=== PATIENT | male | born 1970 | race Caucasian/White ===

== ENCOUNTER → 2021-10-05 11:44 | Outpatient (BNVA) | payer BC, MEDICAID, SELFPAY | PROVIDERS: PCP Nurse Practitioner Family; Visit Provider Nurse Practitioner Family | DX: R56.9 Unspecified convulsions (principal); I10 Essential (primary) hypertension; Z86.73 Personal history of transient ischemic attack (TIA), and cerebral infarction without residual deficits; Z12.5 Encounter for screening for malignant neoplasm of prostate; Z12.11 Encounter for screening for malignant neoplasm of colon; Z76.89 Persons encountering health services in other specified circumstances | CPT/HCPCS: 80053; 80061; 80164; G0103 ==

== ENCOUNTER 2021-12-30 06:00 | Outpatient (RCR) | payer BC, MEDICAID, SELFPAY | END 2022-01-23 23:59 | disposition home or self-care (01) | LOC: TPT 06:00 | PROVIDERS: PCP Nurse Practitioner Family; Referring Provider Nurse Practitioner Family; Visit Provider Nurse Practitioner Family | DX: M25.559 Pain in unspecified hip (principal); M25.519 Pain in unspecified shoulder; M41.9 Scoliosis, unspecified | CPT/HCPCS: 97163 ==

== ENCOUNTER → 2022-02-21 10:51 | Outpatient (BNVA) | payer BC, MEDICAID, SELFPAY | PROVIDERS: PCP Nurse Practitioner Family; Visit Provider Nurse Practitioner Family | DX: F32.A Depression, unspecified (principal); E78.00 Pure hypercholesterolemia, unspecified; I10 Essential (primary) hypertension; M54.9 Dorsalgia, unspecified; M41.9 Scoliosis, unspecified; R56.9 Unspecified convulsions; F41.9 Anxiety disorder, unspecified | CPT/HCPCS: 80053; 80061; 84443 ==

== ENCOUNTER → 2022-07-21 09:40 | Outpatient (BNVA) | payer BC, MEDICAID, SELFPAY | PROVIDERS: PCP Nurse Practitioner Family; Visit Provider Nurse Practitioner Family | DX: G40.A09 Absence epileptic syndrome, not intractable, without status epilepticus (principal); F41.9 Anxiety disorder, unspecified; Z79.899 Other long term (current) drug therapy; F32.A Depression, unspecified; R56.9 Unspecified convulsions; E78.00 Pure hypercholesterolemia, unspecified; R42 Dizziness and giddiness; R51.9 Headache, unspecified; I10 Essential (primary) hypertension | CPT/HCPCS: 80053; 80061; 80164; 84443 ==

== ENCOUNTER → 2022-09-01 11:32 | Outpatient (BNVA) | payer BC, MEDICAID, SELFPAY | PROVIDERS: PCP Nurse Practitioner Family; Visit Provider Nurse Practitioner Family | DX: R56.9 Unspecified convulsions (principal); Z79.899 Other long term (current) drug therapy | CPT/HCPCS: 80164 ==

== ENCOUNTER → 2022-10-24 11:32 | Outpatient (BNVA) | payer BC, SELFPAY | PROVIDERS: PCP Nurse Practitioner Family; Visit Provider Psychiatry & Neurology Neurology | DX: G40.909 Epilepsy, unspecified, not intractable, without status epilepticus (principal) | CPT/HCPCS: 80164 ==

== ENCOUNTER 2022-11-01 13:39 | Outpatient (CLI) | payer BC, SELFPAY ==
--- NOTE | 2022-11-01 13:45 | MR_ITS ---
WS: [id number] MRI BRAIN WITHOUT CONTRAST HISTORY: R56.9 - Unspecified convulsions COMPARISON: Noncontrast CT head 11/19/2015 TECHNIQUE: Diffusion imaging, multiplanar T1, T2 and FLAIR imaging obtained. Diffusion-weighted imaging is normal. No acute infarct. Volume loss and prior remote infarct along th e RIGHT parafalcine frontal and parietal lobes. There is involvement of the RIGHT frontal, parietal a nd occipital lobes. Inferior extension along the temporal lobe. Very similar distribution as compared to the prior CT. No significant volume loss within the LEFT cerebrum. No additional infarcts. Mild ex vacuole dilatation of the RIGHT lateral ventricle. No inferior displacement of cerebellar tonsils. The sella turcica and pituitary gland are unremarkabl e. Dural venous sinuses and chitina of [place] demonstrate no abnormality on this unenhanced studies. Paranasal sinuses: Clear. Mastoid air cells: Normal. Calvarium and scalp: Intact. MR/MR head wo con* [id number] IMPRESSION: 1. No acute infarct. 2. Large area of encephalomalacia involving the RIGHT parafalcine frontal and parietal lobes with extension into the occipital and temporal lobes. These find ings were seen present in 2016 and without obvious progression. Probably posttr aumatic as per history. 3. Volume loss RIGHT cerebrum with ex vacuole dilatation of the RIGHT lateral ventricle.
== END 2022-11-01 13:40 | disposition home or self-care (01) ==
PROVIDERS: PCP Nurse Practitioner Family; Visit Provider Psychiatry & Neurology Neurology
DX: R56.9 Unspecified convulsions (principal)
CPT/HCPCS: 70551

== ENCOUNTER 2022-11-03 15:53 | Emergency (ER) | payer BC, SELFPAY ==
[2022-11-03 15:56] VITALS: BP 150/107; PULSE 67; TEMP 36.4; O2SAT 98; BMI 27.3
--- NOTE | 2022-11-03 16:07 | W.ED.NEUROSD ---
HPI - Neuro Symptoms/Deficit General: Chief Complaint: Neuro Symptoms/Deficit Stated Complaint: Stoke like symptoms Time Seen by Provider: 11/03/22 16:01 Source: patient Mode of arrival: ambulatory History of Present Illness: 52-year-old male was at the counselor's office began not to feel well then he had some shaking. He was ambulated over to the primary care doctor's office for they seen him felt he was possibly having a seizure and he was brought in by ambulance. He can remember the entire event he tells me he thinks he is having a panic attack he has no focal neurologic deficits he does report that when he was a child he evidently had a stroke and has some left-sided weakness and walks with a limp and has limitations on his arm that he reports is all being at his baseline he is awake and alert and oriented x3 follows all commands well. [facility] ED PFSH: Medical History History of stroke (~1971) Scoliosis Seizures (~1971) Social History Smoking and tobacco status: never smoked Adopted: Yes Caregiver/support person: Yes (adoptive mother) Current gender identity: Male Physical Exam Neuro: OTHER: NIH score 0 Course Vital Signs: Vital signs: Vital Signs Temperature 97.6 F 11/03/22 15:56 Pulse Rate 67 11/03/22 15:56 Blood Pressure 133/88 11/03/22 16:42 Pulse Oximetry 98 11/03/22 16:42 Oxygen Delivery Me thod Room Air 11/03/22 16:42 MDM - Neuro Symptoms/Deficit Medical Decision Making Neurologically intact he does have some left-sided deficits from previous old injury he states it was even was a child but otherwise he is awake and alert he has no postictal symptoms no acute neurologic deficits. That episode that happened he was able to ambulate on his own remembers everything that happened I suspect he had a panic attack which is what he identified as exam is normal he is fully neurologically intact at this time we will go and discharge patient home follow-up as needed continue all his current medications. Medical Records I reviewed the patient's medical records. Lab Data I reviewed the patient's lab results. 11/03/22 16:05 11/03/22 16:05 Laboratory Results WBC 5.5 10^3/uL (4.0-10.0) 11/03/22 16:05 RBC 5.15 10^6/uL (4.1-5.3) 11/03/22 16:05 Hgb 15.9 g/dL (11.7-16.6) 11/03/22 16:05 Hct 48.7 % (42.0-52.0) 11/03/22 16:05 MCV 94.6 fl (80-94) H 11/03/22 16:05 MCH 30.9 pg (28.0-34.0) 11/03/22 16:05 MCHC 32.6 g/dL (30.0-36.0) 11/03/22 16:05 RDW 13.0 % (12.1-15.1) 11/03/22 16:05 Plt Count 176 10^3/cmm (130-400) 11/03/22 16:05 MPV 10.2 fL (7.4-10.4) 11/03/22 16:05 Neut % (Auto) 50.4 % 11/03/22 16:05 Lymph % (Auto) 37.3 % 11/03/22 16:05 [place] % (Auto) 9.3 % 11/03/22 16:05 Eos % (Auto) 1.8 % 11/03/22 16:05 Baso % (Auto) 0.7 % 11/03/22 16:05 Neut # (Auto) 2.75 10^3/uL (1.8-7.7) 11/03/22 16:05 Lymph # (Auto) 2.0 10^3/uL (0.8-4.8) 11/03/22 16:05 [place] # (Auto) 0.5 10^3/uL (0.2-0.9) 11/03/22 16:05 Eos # (Auto) 0.1 10^3/uL (0.0-0.8) 11/03/22 16:05 Baso # (Auto) 0.0 10^3/uL (0.0-0.1) 11/03/22 16:05 Nucleated RBC % (auto) 0 % 11/03/22 16:05 Nucleated RBCs # 0.0 /100WBC 11/03/22 16:05 Sodium 138 mmol/L (136-145) 11/03/22 16:05 Chloride 100 mmol/L (98-107) 11/03/22 16:05 Carbon Dioxide 26 mmol/L (22-29) 11/03/22 16:05 BUN 10 mg/dL (6-20) 11/03/22 16:05 Creatinine 0.8 mg/dL (0.7-1.2) 11/03/22 16:05 GFR Calculation 101.9 mL/min (90-130) 11/03/22 16:05 Glucose 93 mg/dL (65-115) 11/03/22 16:05 Calculated Osmolality 285 mOsm/kg (285-295) 11/03/22 16:05 Calcium 9.2 mg/dL (8.5-10.5) 11/03/22 16:05 Total Bilirubin 0.3 mg/dL (0.15-1.2) 11/03/22 16:05 AST 32 U/L (0-40) 11/03/22 16:05 ALT 35 U/L (0-41) 11/03/22 16:05 Alkaline Phosphatase 65 U/L (40-130) 11/03/22 16:05 Total Protein 7.6 g/dL (6.6-8.7) 11/03/22 16:05 Albumin 4.3 g/dL (3.5-5.2) 11/03/22 16:05 Globulin 3.3 g/dL (1.3-4.6) 11/03/22 16:05 Discharge Plan Discharge Patient Disposition: Home Clinical Impression: Anxiety, Seizures Condition: Stable Prescriptions: No Action (DME) orthopedic shoes with an external heel lift to the left 2.8 cm See Rx Instructions .Route .MEDSUPPLY Qty: 1 0RF Rx Instructions: As directed by [facility] divalproex [Depakote] 250 mg tablet,delayed release (DR/EC) 250 mg PO Q6H Qty: 120 5RF Rx Instructions: @02:00,08:00,14:00,20:00 Discharge Orders: Discharge ED (Routine); Ordered 11/03/22 Ordered By: Александр Tran Referrals: Josefa Newman NP [Primary Care Provider] - Patient Instructions: Opioid Safety, Pain Management Activity Restrictions/Additional Instructions: You are seen today after an anxiety attack. From your description and your exam there is no evidence of a new acute stroke or evidence that you have had a seizure. Continue on all of your current medications and follow-up as needed. Coding Level of Care Code ED Geriatric Physician for Leslie Russ
[2022-11-03 16:15] LABS: Basophils % 0.7 %; Eosinophils # 0.1 10^3/uL (0.0-0.8); Eosinophils % 1.8 %; Hematocrit 48.7 % (42.0-52.0); Hemoglobin 15.9 g/dL (11.7-16.6); Lymphocytes % 37.3 %; Mean Corpuscular HGB Conc 32.6 g/dL (30.0-36.0); Mean Corpuscular Hemoglobin 30.9 pg (28.0-34.0); Mean Corpuscular Volume 94.6 fl (80-94); Mean Platelet Volume 10.2 fL (7.4-10.4); Monocytes # 0.5 10^3/uL (0.2-0.9); Monocytes % 9.3 %; Neutrophils # 2.75 10^3/uL (1.8-7.7); Neutrophils % 50.4 %; Nucleated Red Blood Cells % 0 %; Platelet Count 176 10^3/cmm (130-400); Red Blood Count 5.15 10^6/uL (4.1-5.3); White Blood Count 5.5 10^3/uL (4.0-10.0)
--- NOTE | 2022-11-03 16:36 | ECG_ITS ---
[facility] Test Date: 2022-11-03 Pat Name: Dann Bowens Department: Room: Gender: Male Household Worker: : 1970 Requested By: Александр Almeida Order Number: [id number] Jeffy MD: Perico Aguillon M.D. Measurements Intervals [place] Rate: 64 P: 64 [place]: 156 QRS: -25 QRSD: 89 T: 59 QT: 405 QTc: 420 Interpretive Statements SINUS RHYTHM WITH SINUS ARRHYTHMIA BORDERLINE LEFT AXIS DEVIATION [QRS AXIS < -20] Compared to ECG 11/19/2015 16:24:16 Sinus bradycardia no longer present Incomplete right bundle-branch block no longer present T-wave abnormality no longer present Electronically Signed On 11-04-2022 11:59:20 CDT by Perico Aguillon M.D. [id number]
--- NOTE | 2022-11-03 16:40 | PC.PHAR ---
PT STATES ONLY TAKING DEPAKOTE DR 250MG Q6H-PT STATES THE DEPAKOTE ER 500MG 2 TABS BID FILLED 09/28/22 30D/S ZONISAMIDE 100MG TID FILLED 09/22/22 90D/S LEXAPRO 10MG DAILY FILLED 08/11/22 30D/S AND ZOCOR 20MG HS FILLED 07/22/22 90D/S WAS ALL DCED
[2022-11-03 16:42] VITALS: BP 133/88; O2SAT 98
[2022-11-03 16:55] LABS: Alanine Aminotransferase 35 U/L (0-41); Albumin Level 4.3 g/dL (3.5-5.2); Alkaline Phosphatase 65 U/L (40-130); Aspartate Amino Transferase 32 U/L (0-40); Blood Urea Nitrogen 10 mg/dL (6-20); Calcium 9.2 mg/dL (8.5-10.5); Carbon Dioxide 26 mmol/L (22-29); Chloride 100 mmol/L (98-107); Globulin 3.3 g/dL (1.3-4.6); Glomerular Filtration Rate 101.9 mL/min (90-130); Glucose 93 mg/dL (65-115); Osmolality Calculated 285 mOsm/kg (285-295); Sodium 138 mmol/L (136-145); Total Bilirubin 0.3 mg/dL (0.15-1.2); Total Protein 7.6 g/dL (6.6-8.7)
[2022-11-03 17:22] LABS: Anion Gap 15.9 (5-19); Potassium 3.9 mmol/L (3.5-5.1)
== END 2022-11-03 17:42 | disposition home or self-care (01) ==
PROVIDERS: Emergency Provider Family Medicine; PCP Nurse Practitioner Family
DX: R56.9 Unspecified convulsions (principal); F41.9 Anxiety disorder, unspecified; Z86.73 Personal history of transient ischemic attack (TIA), and cerebral infarction without residual deficits
CPT/HCPCS: 80053; 85025; 93005; 99284

== ENCOUNTER → 2022-11-14 08:40 | Outpatient (BNVA) | payer BC, SELFPAY | PROVIDERS: PCP Nurse Practitioner Family; Visit Provider Psychiatry & Neurology Neurology | DX: R56.9 Unspecified convulsions (principal); R42 Dizziness and giddiness; R51.9 Headache, unspecified; R55 Syncope and collapse; Z79.899 Other long term (current) drug therapy | CPT/HCPCS: 80164 ==

== ENCOUNTER → 2022-12-12 09:16 | Outpatient (BNVA) | payer BC, SELFPAY | PROVIDERS: PCP Nurse Practitioner Family; Visit Provider Psychiatry & Neurology Neurology | DX: G40.909 Epilepsy, unspecified, not intractable, without status epilepticus (principal) | CPT/HCPCS: 80164 ==

== ENCOUNTER → 2023-03-31 11:19 | Outpatient (BNVA) | payer BC, SELFPAY | PROVIDERS: PCP Nurse Practitioner Family; Visit Provider Nurse Practitioner Family | DX: G40.219 Localization-related (focal) (partial) symptomatic epilepsy and epileptic syndromes with complex partial seizures, intractable, without status epilepticus (principal); Z79.899 Other long term (current) drug therapy | CPT/HCPCS: 80053; 80164 ==

== ENCOUNTER → 2023-06-07 11:57 | Outpatient (BNVA) | payer BC, SELFPAY | PROVIDERS: PCP Nurse Practitioner Family; Visit Provider Psychiatry & Neurology Neurology | DX: G40.909 Epilepsy, unspecified, not intractable, without status epilepticus (principal); G40.219 Localization-related (focal) (partial) symptomatic epilepsy and epileptic syndromes with complex partial seizures, intractable, without status epilepticus | CPT/HCPCS: 80164 ==

== ENCOUNTER → 2023-06-30 13:19 | Outpatient (BNVA) | payer BC, SELFPAY | PROVIDERS: PCP Nurse Practitioner Family; Visit Provider Nurse Practitioner Family | DX: F32.A Depression, unspecified (principal); F41.9 Anxiety disorder, unspecified; I10 Essential (primary) hypertension | CPT/HCPCS: 80053 ==

== ENCOUNTER → 2023-07-07 08:43 | Outpatient (BNVA) | payer BC, SELFPAY | PROVIDERS: PCP Nurse Practitioner Family; Visit Provider Psychiatry & Neurology Neurology | DX: G40.219 Localization-related (focal) (partial) symptomatic epilepsy and epileptic syndromes with complex partial seizures, intractable, without status epilepticus (principal); G40.A09 Absence epileptic syndrome, not intractable, without status epilepticus | CPT/HCPCS: 80164; 80203 ==

== ENCOUNTER 2023-10-25 07:59 | Outpatient (CLI) | payer BC, SELFPAY ==
[2023-10-29 19:34] LABS: Zonisamide (Zonegran) 3.8 mcg/mL (10.0-40.0)
== END 2023-10-25 08:00 | disposition home or self-care (01) ==
LOC: LAB 08:01
PROVIDERS: PCP Nurse Practitioner Family; Visit Provider Psychiatry & Neurology Neurology
DX: G40.219 Localization-related (focal) (partial) symptomatic epilepsy and epileptic syndromes with complex partial seizures, intractable, without status epilepticus (principal)
CPT/HCPCS: 36415; 80164; 80203

== ENCOUNTER → 2024-01-26 10:52 | Outpatient (BNVA) | payer BC, SELFPAY | PROVIDERS: PCP Nurse Practitioner Family; Visit Provider Psychiatry & Neurology Neurology | DX: G40.909 Epilepsy, unspecified, not intractable, without status epilepticus (principal); G40.A09 Absence epileptic syndrome, not intractable, without status epilepticus | CPT/HCPCS: 80203 ==